=== PATIENT | male | born 1985 | race Caucasian/White ===

== ENCOUNTER 2018-02-28 02:37 | Emergency (ER) | payer SELFPAY ==
[2018-02-28] VITALS (8 sets, daily range): BP systolic 123–158; BP diastolic 65–94
[~2018-02-28] VITALS: Ht 180.3 cm; Wt 70.3 kg
[~2018-02-28 02:37] MED LIST: IBUPROFEN600 MG ORAL; NORCO 5-325 TA1 EACH ORAL
[2018-02-28] MEDS ORDERED: NKM (02:44)
[2018-02-28] MEDS ORDERED: Ketorolac 60mg Inj IM ONE (03:00)
--- NOTE | 2018-02-28 03:00 | Emergency Room Report ---
History of Present Illness General Chief Complaint: Shoulder Injury Source: Patient Present Illness HPI Is a 32-year-old male who is right-hand dominant. He has previous left shoulder dislocation in the past. He also had one previous right shoulder dislocation. He presents with right shoulder pain and dislocation. He was walking his dog on a skateboard when skateboard hit a crack in the sidewalk and he fell and dislocated shoulder. This occurred just prior to arrival. Worse with movement. Pain is 3 out of 10 holding still. 8 out of 10 with movement. Denies any head injury. No loss of consciousness. Allergies: Coded Allergies: No Known Allergies (Unverified , 10/17/15) Patient History Past Medical History: see triage record, old chart reviewed Past Surgical History: none Pertinent Family History: none Social History: Denies: smoking Immunizations: other Reviewed Nursing Documentation: PMH: Agreed; PSxH: Agreed Nursing Documentation-PM Past Medical History: No Stated History Review of Systems Eye: Denies: eye pain, blurred vision ENT: Denies: ear pain, nose congestion, throat swelling Respiratory: Denies: cough, shortness of breath Cardiovascular: Denies: chest pain, palpitations Gastrointestinal: Denies: abdominal pain, diarrhea, nausea, vomiting Musculoskeletal: Reports: joint pain; Denies: back pain Skin: Denies: rash Neurological: Denies: headache, numbness Endocrine: Denies: increased thirst, increased urine Hematologic/Lymphatic: Denies: easy bruising All Other Systems: negative except mentioned in HPI Physical Exam Vital Signs Date Time Temp Pulse Resp B/P (MAP) Pulse Ox O2 Delivery O2 Flow Rate FiO2 02/28/18 02:42 87 16 154/94 96 Room Air vitals with high blood pressure Sp02 EP Interpretation: reviewed, normal General Appearance: well appearing, no apparent distress, alert Head: normocephalic, atraumatic Eyes: bilateral eye PERRL, bilateral eye EOMI ENT: hearing grossly normal, normal pharynx Neck: full range of motion, supple, no meningismus Respiratory: chest non-tender, lungs clear, normal breath sounds Cardiovascular #1: regular rate, rhythm, no murmur Gastrointestinal: normal bowel sounds, non tender, no mass, no organomegaly, no bruit, non-distended Musculoskeletal: back normal, gait/station normal, other - Right shoulder with fullness anteriorly consistent with anterior shoulder dislocation. Sensation over deltoid is normal. Elbow has an abrasion to the proximal forearm. Pulses normal Psychiatric: mood/affect normal Skin: warm/dry Procedures Splinting Splinting : Consent: Verbal Location: right shoulder Pre-Made Type: shoulder immobilizer Pre-Proc Neuro Vasc Exam: normal Post-Proc Neuro Vasc Exam: normal Patient Tolerated: Well Complications: None Joint Reduction Joint Reduction : Consent: Written Joint Reduction Site: shoulder (R) Procedural Sedation: Yes Reduction Attempts: One Pre-Procedure NV Exam: Yes Post-Procedure NV Exam: Yes Post Joint Reduction Film: joint reduced Patient Tolerated: Well Complications: None Progress Patient sedated with a total of 200 mg of propofol. With traction and internal rotation I was able to reduce the shoulder without any difficulty. Patient tolerated procedure without a problem. After was placed in a shoulder immobilizer. X-rays done. No complications. Procedural Sedation Consent: Written Time out called at: 03:40 Pre-Sedation Assessment: Elective Airway Assessment (Malampati): I Heart: normal Lungs: normal Abdomen: normal Extremities: normal Procedures/Plans: Closed Reduction Plan for Moderate Sedation: Propofol ASA Score: I Procedure Narrative Patient received a total 200 mg of propofol and 50 mg aliquot. He was fully sedated, I reduce the shoulder without any difficulty. No complication. Patient woke up quite after sedation was done. Patient placed and she'll mobilize and x-rays done. Total time was 30 minutes. Start Time: 03:35 End Time: 04:10 Post-Sedation Assessment patient had no complications. no n/v. no desaturation. Communication: No Apparent Limitation Mental Status: Awake Respiration: Unlabored Skin Condition: WNL Abdomen: WNL Nausea: NO Vomiting: NO Medical Decision Making Diagnostic Impression: Primary Impression: Anterior dislocation of right shoulder Qualified Codes: S43.014A - Anterior dislocation of right humerus, initial encounter ER Course Patient with anterior shoulder dislocation. No fracture. Reduce without a problem. We'll discharge home in shoulder immobilizer. Other X-Ray Diagnostic Results Other X-Ray Diagnostic Results #1: X-Ray ordered: right shoulder x-rays # of Views/Limited Vs Complete: 3 View Indication: Pain EP Interpretation: Yes Interpretation: no soft tissue swelling, no fractures, other - anterior shoulder dislocation Impression: Other - anterior shoulder d/l Electronically Signed by: Guy Carrizales MD Other X-Ray Diagnostic Results #2: X-Ray ordered: right shoulder xrays # of Views/Limited Vs Complete: 3 View Indication: Other - post reduction EP Interpretation: Yes Interpretation: no dislocation, no soft tissue swelling, no fractures Impression: No acute disease - successful reduction Electronically Signed by: Guy Carrizales MD Last Vital Signs Date Time Temp Pulse Resp B/P (MAP) Pulse Ox O2 Delivery O2 Flow Rate FiO2 02/28/18 02:42 87 16 154/94 96 Room Air Status: improved Disposition: HOME, SELF-CARE Condition: Stable Scripts Ibuprofen* (MOTRIN*) 600 Mg Tablet 600 MG ORAL THREE TIMES A DAY, #30 TAB 0 Refills Prov: GUY CARRIZALES M.D. 02/28/18 Referrals: NOT CHOSEN [facility]/,REFERRING (PCP) Patient Instructions: Shoulder Dislocation Additional Instructions: Follow-up with your doctor in 7 days. You may benefit from referral to see orthopedic doctor. Return if worse. Wear shoulder immobilizer for comfort. May remove in a couple days. GUY CARRIZALES M.D. Feb 28, 2018 03:00
[2018-02-28] MEDS ORDERED: HYDROmorphone 1mg/ml Carpuject IVP ONE (03:15)
[2018-02-28] MEDS ORDERED: Propofol 200mg/20ml IV ONE ×2 (03:51→04:00)
[2018-02-28] MEDS ORDERED: IBUPROFEN600 MG ORAL (04:08)
--- NOTE | 2018-02-28 10:41 | Diagnostic Imaging Report ---
Indication: Dislocation status post reduction Technique: XRAY Shoulder Compl R Comparison: 02/28/2018, 3:09 Findings/Impression: Interval reduction of the previously seen right shoulder dislocation. No definite acute fracture appreciated.
--- NOTE | 2018-02-28 10:43 | Diagnostic Imaging Report ---
Indication: Pain status post injury Technique: XRAY Shoulder Compl R Comparison: None Findings: There is abnormal inferior and medial displacement of the humeral head relative to the glenoid compatible with an anterior shoulder dislocation. No definite fractures identified. There may be a tiny Hill-Sachs deformity. Imaged portions of the right lung grossly clear. No radiopaque foreign body seen. Impression: Anterior shoulder dislocation.
== END 2018-02-28 05:55 | disposition home or self-care (01) ==
LOC: EMR 02:46
DX: S43.014A Anterior dislocation of right humerus, initial encounter (principal); W19.XXXA Unspecified fall, initial encounter; Y93.K1 Activity, walking an animal; Y92.410 Unspecified street and highway as the place of occurrence of the external cause
CPT/HCPCS: 23655; 73030; 96372; 96374; 96375; 99284; J1170; J2405; J2704